=== PATIENT | male | born 1965 | race Caucasian/White ===

== ENCOUNTER 2023-05-09 20:22 | Observation (INO) | payer BC, SELFPAY ==
[2023-05-09 20:36] VITALS: BP 126/82; PULSE 49; RESP 15; O2SAT 97
[2023-05-09 20:38] VITALS: PULSE 51
--- NOTE | 2023-05-09 21:00 | EXP.HP ---
History of Present Illness *Admission Date: 05/09/23 *Reason for visit:: Chest pain. *History of present illness: This is a 57 years old male with non significant past medical history, other than allergy. Presented to our facility as a transfer from [facility]. Patient was stated up he was having sharp pain in the left upper chest on Tuesday, pain used to radiate to the left arm. This afternoon he was feeling some lightheaded nausea along with the left shoulder pain, while doing exertional movement. Onset of pain was actually over the weekend and since then has been intermittent With No Particular pattern. Patient has never had stress test for heart cath. Has no personal or family medical history of heart disease. I did review the ER records. EKG was showing sinus bradycardia with some ST abnormalities, patient was given a nitroglycerin Brilinta and aspirin he is also being covered with atorvastatin and Lovenox. Checks x-ray negative. Patient admitted for further cardiac work-up and monitor [facility] Disclaimer: The information contained in this section may have been updated after the patient was seen, as this information can be updated by other users. Medical History (Updated 05/09/23 @ 21:46 by Ron Aceves APRN) Seasonal allergies Surgical History (Updated 05/09/23 @ 21:13 by Anibal Nelson RN) History of arthroplasty of left knee Family History (Updated 05/09/23 @ 21:14 by Anibal Nelson RN) Other Family history of COPD (chronic obstructive pulmonary disease) Family history of acute congestive heart failure Family history of cancer Social History (Updated 05/09/23 @ 21:15 by Anibal Nelson RN) Smoking Status: Never smoker alcohol intake: never current occupational status: employed Travel in the last 8 weeks: None Review of Systems Review of Systems Review of systems:: pertinent systems reviewed and negative unless documented below Meds Home Medications and Allergies Home Medications Medication Instructions Recorded Confirmed Type fluticasone propionate 50 2 spray intranasal DAILY allergies 05/09/23 05/09/23 History mcg/actuation nasal spray,suspension aspirin 81 mg chewable tablet 81 mg PO DAILY #30 tabs 05/10/23 Rx atorvastatin 40 mg tablet 40 mg PO HS #30 tabs 05/10/23 Rx pantoprazole 40 mg tablet,delayed 40 mg PO DAILY #30 tabs 05/10/23 Rx release New Prescriptions to Start Prescriptions: aspirin Ari Ryder atorvastatin Ari Ryder pantoprazole Ari Ryder Allergies Allergy/AdvReac Type Severity Reaction Status Date / Time erythromycin base Allergy Verified 05/09/23 21:24 Penicillins Allergy Verified 05/09/23 21:24 Exam Data for Last 24 hours Vital signs and Labs for Last 24 Hours: Pulse Resp BP Pulse Ox 49 L 15 126/82 97 05/09/23 20:36 05/09/23 20:36 05/09/23 20:36 05/09/23 20:36 I & O for Last 24 hours: Intake & Output 05/06/23 05/07/23 05/08/23 05/09/23 23:59 23:59 23:59 23:59 Output Total 0 / 0 Balance 0 / 0 Constitutional Constitutional: no acute distress *Routine HEENT Exam Head: Present normocephalic and atraumatic Eye: Present EOMI, PERRL and normal accommodation ENT: Present mucous membranes moist and mucous membranes dry *Routine Neck Exam Neck: Present supple, full ROM and trachea midline *Routine Respiratory Exam Respiratory: Present normal respiratory effort, able to speak in complete sentences and symmetric chest movement *Routine Cardiovascular Exam Cardiovascular: Present RRR, Normal S1, Normal S2 and bradycardia *Routine Abdominal Exam Abdominal: Present soft and normoactive bowel sounds *Routine Rectal Exam Rectal:: deferred *Routine Genitalia Exam Genitalia:: deferred *Routine Extremities Exam Extremities: Present full ROM, pulses intact and normal capillary refill *Routine Skin Exam Skin:
[2023-05-09 21:25] VITALS: BMI 28.4
[2023-05-09 21:52] LABS: Coronavirus 19, PCR Not Detected (NotDetected); Influenza A, PCR Not Detected (NotDetected); Influenza B, PCR Not Detected (NotDetected)
[2023-05-09 21:59] VITALS: PULSE 54; O2SAT 98
[2023-05-10] VITALS (16 sets, daily range): BP systolic 99–116; BP diastolic 55–75; PULSE 41–55; RESP 14–18; TEMP 36.4–37.6; O2SAT 94–98; BMI 28.3
[2023-05-10 03:51] LABS: Troponin I < 0.01 ng/ml (0.00-0.034)
--- NOTE | 2023-05-10 05:45 | PC.NURSE ---
Patient resting comfortably in bed, denies any cp or soa this shift, remains on RA, vss, bed in lowest position with call light in reach.
[2023-05-10 07:03] LABS: Basophils % 0.4 % (0.1-2.0); Eosinophils # 0.3 K/mm3 (0.0-0.4); Eosinophils % 3.4 % (0.1-12.0); Hematocrit 45.6 % (42.0-52.0); Hemoglobin 14.8 g/dL (14.1-18.0); Lymphocytes # 2.2 K/mm3 (0.7-4.5); Lymphocytes % 29.4 % (10-50); Mean Corpuscular HGB Conc 32.5 g/dL (31.8-35.4); Mean Corpuscular Hemoglobin 30.7 pg (27.0-31.2); Mean Corpuscular Volume 94.4 fl (80-94); Mean Platelet Volume 8.9 fl (7.4-10.4); Monocytes # 0.3 K/mm3 (0.1-1.0); Monocytes % 4.6 % (1.7-9.3); Neutrophils # 4.6 K/mm3 (1.8-7.8); Neutrophils % 62.2 % (37.0-80.0); Platelet Count 210 K/mm3 (142-424); Red Blood Count 4.83 M/mm3 (4.60-6.20); Red Cell Distribution Width 13.1 % (11.5-17.5); White Blood Count 7.3 K/mm3 (4.8-10.8)
[2023-05-10 07:17] LABS: Alanine Aminotransferase 26 U/L (12-78); Albumin Level 4.4 g/dl (3.5-5.0); Albumin/Globulin Ratio 1.8 (1.1-1.8); Alkaline Phosphatase 69 U/L (38-126); Anion Gap 10.2 mEq/L (5-15); Aspartate Amino Transferase 34 U/L (17-59); Bilirubin,Total 2.3 mg/dl (0.2-1.3); Blood Urea Nitrogen 15 mg/dl (9-20); Calcium 9.2 mg/dl (8.4-10.2); Carbon Dioxide 24 mmol/L (22.0-30.0); Chloride 111 mmol/L (98-107); Chol/HDL Ratio 5.3 (1-3.5); Cholesterol 252 mg/dl (140-200); Creatinine Clearance Estimated 92 mL/min (50-200); Estimated Glomerular Filt Rate 69 ml/min (>60); GFR (African American) 83 ML/MIN (>60); Globulin 2.5 g/dL (1.3-3.2); Glucose 90 mg/dl (74-100); HDL Cholesterol 48 mg/dl (40-60); Potassium 4.2 mmoL/L (3.5-5.1); Sodium 141 mmol/L (136-145); Total Protein,Serum 6.9 g/dl (6.3-8.2); Triglycerides 138 mg/dl (30-150); VLDL Cholesterol 28 mg/dL (0-40)
--- NOTE | 2023-05-10 07:22 | IR_ITS ---
APPROVED REPORT Patient Location: Inpatient [facility] Consultant: FAY Diaz RT (R) PROCEDURES Left heart catheterization Left ventriculogram Selective coronary angiogram Intravascular ultrasound of the ostial proximal LAD INDICATION Unstable angina, Coronary artery disease Informed consent was obtained prior to the procedure. COMPLICATIONS None Estimated Blood Loss: Less than 10 mls TECHNIQUE One percent lidocaine used to anesthetize the right anterior aspect of the wrist. The right radial artery was accessed via the Seldinger technique. A 6 Greek sheath was placed in the right radial artery. 150 mg magnesium sulfate, 800 mcg of nitroglycerin, 1mg Lidocaine and 5000 U Heparin were given through the arterial sheath. The papa catheter was also used to perform left heart catheterization, left ventriculogram and selective coronary angiogram. At the end the diagnostic angiogram therapeutic Was administered giving a therapeutic ACT and the guide catheter was placed in left main artery followed by Choice PT extra-support wire being placed on the LAD. Intravascular ultrasound probe was advanced in the ostial proximal LAD was interrogated. This demonstrated mild nonflow limiting disease with an MLA greater than 8.8 mm???. The apparatus was then removed sheath was removed and hemostasis was achieved using TR banding patient was transferred to the postop putting in stable condition ANGIOGRAPHIC RESULTS The left main artery Normal The left anterior descending artery Is an ostial proximal mild atheromatous plaque which was still angiographically ambiguous but proven 10 to 20% by IVUS. The remaining LAD has mild atheromatous plaque The circumflex artery Is large and dominant and gives rise to a moderate-sized ramus intermedius which has an ostial 60 to 70% stenosis. The remaining circumflex artery has mild 10% luminal irregularities The right coronary artery Vestigial normal The [place]NE ventriculogram reveals Not performed The left ventricular end-diastolic pressure Not measured IMPRESSION Mild disease in the LAD as described above Moderate ostial stenosis in the ramus intermedius which is not amenable to percutaneous intervention based on the trifurcating nature of the distal left main artery. Both the LAD and dominant circumflex artery are large while this ramus intermedius is in the small to moderate range. This lesion is best managed medically and should never be intervened upon percutaneously PLAN 1. LDL less than 55 to be achieved with high intensity statin 2. Medical management while maximizing antianginal medications 3. Echocardiogram to better evaluate ejection fraction 4. Aggressive risk factor modification Electronically signed by : Santosh Leonard MD 05/10/2023 08:34:15
--- NOTE | 2023-05-10 07:58 | EXP.CARD.CON ---
History of Present Illness History of Present Illness Consult date: 05/10/23 Requesting physician: Ari Ryder Consult reason: chest pain Chief complaint: chest pain Additional Medical History:: No significant medical history History of present illness: This is a 57 years old male with non significant past medical history, other than allergy. Presented to our facility as a transfer from [facility]. Patient was stated up he was having sharp pain in the left upper chest on Tuesday, pain used to radiate to the left arm. This afternoon he was feeling some lightheaded nausea along with the left shoulder pain, while doing exertional movement. Onset of pain was actually over the weekend and since then has been intermittent With No Particular pattern. Patient has never had stress test for heart cath. Has no personal or family medical history of heart disease. I did review the ER records. EKG was showing sinus bradycardia with some ST abnormalities, patient was given a nitroglycerin Brilinta and aspirin he is also being covered with atorvastatin and Lovenox. Checks x-ray negative. Patient admitted for further cardiac work-up and monitor The above per Ron Aceves APRN Pt was taken to manager laboratory this AM before I could see him. Troponins have returned normal. [facility] Disclaimer: The information contained in this section may have been updated after the patient was seen, as this information can be updated by other users. Medical History (Updated 05/09/23 @ 21:46 by Ron Aceves APRN) Seasonal allergies Surgical History (Updated 05/09/23 @ 21:13 by Anibal Nelson RN) History of arthroplasty of left knee Family History (Updated 05/09/23 @ 21:14 by Anibal Nelson RN) Family history of acute congestive heart failure Family history of cancer Family history of COPD (chronic obstructive pulmonary disease) Social History (Updated 05/09/23 @ 21:15 by Anibal Nelson RN) Smoking Status: Never smoker alcohol intake: never current occupational status: employed Travel in the last 8 weeks: None Exam Data for Last 24 hours Vital signs and Labs for Last 24 Hours: Temp Pulse Resp BP Pulse Ox O2 Del Method 99.6 F 48 L 14 100/69 L 95 Room Air 05/10/23 00:00 05/10/23 04:00 05/10/23 04:00 05/10/23 04:00 05/10/23 04:00 05/10/23 06:19 Laboratory Results - last 24 hr 05/09/23 21:45: SARS-CoV-2 (PCR) Not detected, Influenza A Untype (PCR) Not detected, Influenza Type B (PCR) Not detected 05/10/23 03:05: Troponin I < 0.01 05/10/23 06:50: WBC 7.3, RBC 4.83, Hgb 14.8, Hct 45.6, MCV 94.4 H, MCH 30.7, MCHC 32.5, RDW 13.1, Plt Count 210, MPV 8.9, Neut % (Auto) 62.2, Lymph % (Auto) 29.4, Kern % (Auto) 4.6, Eos % (Auto) 3.4, Baso % (Auto) 0.4, Neut # (Auto) 4.6, Lymph # (Auto) 2.2, Kern # (Auto) 0.3, Eos # (Auto) 0.3, Baso # (Auto) 0.0, Sodium 141, Potassium 4.2, Chloride 111 H, Carbon Dioxide 24, Anion Gap 10.2, BUN 15, Creatinine 1.10, Estimated Creat Clear 92, Estimated GFR 69, Est GFR ( Amer) 83, Glucose 90, Calcium 9.2, Total Bilirubin 2.3 H, AST 34, ALT 26, Alkaline Phosphatase 69, Total Protein 6.9, Albumin 4.4, Globulin 2.5, Albumin/Globulin Ratio 1.8, Triglycerides 138, Cholesterol 252 H, LDL Cholesterol Direct 134.70 H, VLDL Cholesterol 28, HDL Cholesterol 48, Cholesterol/HDL Ratio 5.3 H I & O for Last 24 hours: Intake & Output 05/07/23 05/08/23 05/09/23 05/10/23 11:59 11:59 11:59 11:59 Intake Total 495 / 495 Output Total 1050 / 1050 Balance -555 / -555 Weight 198 lb 6.409 oz Meds Home Medications and Allergies Home Medications Medication Instructions Recorded Confirmed Type fluticasone propionate 50 2 spray intranasal DAILY allergies 05/09/23 05/09/23 History mcg/actuation nasal spray,suspension New Prescriptions to Start Prescriptions: Allergies Allergy/AdvReac Type Severity Reaction Status Date / Time erythromycin base Allergy Verified
--- NOTE | 2023-05-10 08:08 | HMH.PHAINT1 ---
Pharmacy Intervention Comments: Patient's home medication reviewed with patient's - Samir Malik, PharmD student
--- NOTE | 2023-05-10 12:21 | EXP.DC.SUM ---
General Admission date:: 05/09/23 Discharge date: 05/10/23 HPI HPI HPI: This is a 57 years old male with non significant past medical history, other than allergy. Presented to our facility as a transfer from [facility]. Patient was stated up he was having sharp pain in the left upper chest on Tuesday, pain used to radiate to the left arm. This afternoon he was feeling some lightheaded nausea along with the left shoulder pain, while doing exertional movement. Onset of pain was actually over the weekend and since then has been intermittent With No Particular pattern. Patient has never had stress test for heart cath. Has no personal or family medical history of heart disease. I did review the ER records. EKG was showing sinus bradycardia with some ST abnormalities, patient was given a nitroglycerin Brilinta and aspirin he is also being covered with atorvastatin and Lovenox. Checks x-ray negative. Patient admitted for further cardiac work-up and monitor Hospital Course Hospital Course Hospital Course: The patient had a cardiac catheterization with the following results: ANGIOGRAPHIC RESULTS The left main artery Normal The left anterior descending artery Is an ostial proximal mild atheromatous plaque which was still angiographically ambiguous but proven 10 to 20% by IVUS. The remaining LAD has mild atheromatous plaque The circumflex artery Is large and dominant and gives rise to a moderate-sized ramus intermedius which has an ostial 40% stenosis. The remaining circumflex artery has mild 10% luminal irregularities The right coronary artery Vestigial normal The [place] ventriculogram reveals Not performed The left ventricular end-diastolic pressure Not measured IMPRESSION Mild disease in the LAD as described above Moderate ostial stenosis in the ramus intermedius which is not amenable to percutaneous intervention based on the trifurcating nature of the distal left main artery. Both the LAD and dominant circumflex artery are large while this ramus intermedius is in the small to moderate range. This lesion is best managed medically and should never be intervened upon percutaneously PLAN 1. LDL less than 55 to be achieved with high intensity statin 2. Medical management while maximizing antianginal medications 3. Echocardiogram to better evaluate ejection fraction 4. Aggressive risk factor modification --- The patient was prescribed new medications: ASA 81 mg daily Rosuvastatin 40 mg daily. He has a history of muscle aches with atorvastatin. Pantoprazole 40 mg daily for one month He will need to follow up with Cardiology in 1 week. Exam Data for Last 24 hours Vital signs and Labs for Last 24 Hours: Temp Pulse Resp BP Pulse Ox O2 Del Method 99.6 F 51 L 18 104/60 L 95 Room Air 05/10/23 00:00 05/10/23 08:50 05/10/23 08:50 05/10/23 08:50 05/10/23 08:50 05/10/23 11:00 Laboratory Results - last 24 hr 05/09/23 21:45: SARS-CoV-2 (PCR) Not detected, Influenza A Untype (PCR) Not detected, Influenza Type B (PCR) Not detected 05/10/23 03:05: Troponin I < 0.01 05/10/23 06:50: WBC 7.3, RBC 4.83, Hgb 14.8, Hct 45.6, MCV 94.4 H, MCH 30.7, MCHC 32.5, RDW 13.1, Plt Count 210, MPV 8.9, Neut % (Auto) 62.2, Lymph % (Auto) 29.4, Perry % (Auto) 4.6, Eos % (Auto) 3.4, Baso % (Auto) 0.4, Neut # (Auto) 4.6, Lymph # (Auto) 2.2, Perry # (Auto) 0.3, Eos # (Auto) 0.3, Baso # (Auto) 0.0, Sodium 141, Potassium 4.2, Chloride 111 H, Carbon Dioxide 24, Anion Gap 10.2, BUN 15, Creatinine 1.10, Estimated Creat Clear 92, Estimated GFR 69, Est GFR ( Amer) 83, Glucose 90, Calcium 9.2, Total Bilirubin 2.3 H, AST 34, ALT 26, Alkaline Phosphatase 69, Total Protein 6.9, Albumin 4.4, Globulin 2.5, Albumin/Globulin Ratio 1.8, Triglycerides 138, Cholesterol 252 H, LDL Cholesterol Direct 134.70 H, VLDL Cholesterol 28, HDL Cholesterol 48, Cholesterol/HDL Ratio 5.3 H I & O for Last 24 hours: Intake & Output 05/07/23 05/08/23 05/09/23
--- NOTE | 2023-05-10 13:23 | HMH.PHAINT1 ---
Pharmacy Intervention Comments: Discharge medications reviewed with patient and patient's -Rosuvastatin 20mg (patient had previous muscle pain with Lipitor, told to monitor for similar muscle pain occurrences) -Aspirin ( told to watch for bleeding and bruising) -Pantoprazole (told to watch for stomach pain) Samir Malik, PharmD sudent
--- NOTE | 2023-05-12 14:36 | CARE MANAGER ---
Unable to reach patient via phone to discuss recent discharge. Call attempted x 2.
== END 2023-05-10 13:37 | disposition home or self-care (01) ==
PROVIDERS: Internal Medicine; Nurse Practitioner Family; Admitting Provider Internal Medicine; Visit Provider Internal Medicine
DX: I25.110 Atherosclerotic heart disease of native coronary artery with unstable angina pectoris (principal); R94.31 Abnormal electrocardiogram [ECG] [EKG]; R00.1 Bradycardia, unspecified; N17.9 Acute kidney failure, unspecified; J30.2 Other seasonal allergic rhinitis
CPT/HCPCS: 36415; 80053; 80061; 84484; 85025; 87636; 92978; 93306; 93454; 99152; C1725; C1760; C1769; G0378; J1644; Q9967